=== PATIENT | female | born 1985 | race Caucasian/White ===

== ENCOUNTER 2018-04-13 17:26 | Emergency (ER) | payer OTHER ==
[~2018-04-13] VITALS: Ht 162.6 cm; Wt 56.7 kg
--- OUTSIDE RECORDS SUMMARY | 2018-04-13 17:29 | XMS REPORT | Continuity of Care Document ---
Author Author [facility] Address Unknown Phone Unavailable Problems Problem Status Onset Date Classification Date Reported Comments Source Tuberculosis screening 11/23/2017 Diagnosis 11/23/2017 [facility] Medications Medication Details Route Status Patient Instructions Ordering Provider Order Date Source Amoxicillin 875 MG Oral Tablet amoxicillin 875 mg tablet Active [facility] Fluticasone propionate 0.05 MG/ACTUAT Metered Dose Nasal [place] fluticasone 50 mcg/actuation nasal spray,suspension Active [facility] Purified Protein Derivative of Tuberculin 50 UNT/ML Injectable Solution [Tubersol] Tubersol 5 tub. unit/0.1 mL intradermal injection solution Inject 0.1 mL by intradermal route. Active [facility] Allergies, Adverse Reactions, Alerts Substance Category Reaction Severity Reaction type Status Date Reported Comments Source Immunizations Immunization Date Given Site Status Last Updated Comments Source Results Order Name Results Value Reference Range Date Interpretation Comments Source Vital Signs Vital Sign Value Date Comments Source Encounters Location Location Details Encounter Type Encounter Number Reason For Visit Attending Provider ADM Date DC Date Status Source [place] - [facility] - [id number] [facility], RECORDS COORDINATOR-C: [address] [place] [address], Ph. [id number] Clarisse Sr 11/23/2017 [facility] Procedures Procedure Code Date Perfomer Comments Source
--- OUTSIDE RECORDS SUMMARY | 2018-04-13 17:29 | XMS REPORT | Encounter Summary ---
Author Organization Unknown Address [address] [place] [id number] Phone [phone] Reason for Visit Screening - TB Instructions 1. Tuberculosis screening Tubersol 5 tub. unit/0.1 mL intradermal injection solution PPD (purified protein derivative), skin test - Patient was advised to follow-up with [facility] within 48-72 hours. Discussion Note Pt is in NAD; Verbalizes understanding of all instructions with no questions at this time. Patient educational handouts: No information available. Plan of Care Patient Instructions Return in 48-72 hrs for TB reading. If not, the skin test will be considered invalid and will have to be repeated. In case of emergency call 911 or go to nearest ER. Reminders Provider Appointments None recorded. Lab PPD (Purified Protein Derivative), Skin Test 11/23/2017 [facility] Referral None recorded. Procedures None recorded. Surgeries None recorded. Imaging None recorded. Medications Name Start Date amoxicillin 875 mg tablet fluticasone 50 mcg/actuation nasal spray,suspension Tubersol 5 tub. unit/0.1 mL intradermal injection solution Inject 0.1 mL by intradermal route. Medications Administered Name Date Tubersol 5 tub. unit/0.1 mL intradermal injection solution Inject 0.1 mL by intradermal route. [id number] Vitals None recorded. Lab Results None recorded. Allergies Code Code System Name Reaction Severity Status Onset NKDA Problems None recorded. Procedures None recorded. Vaccine List None recorded. Social History None recorded. Past Encounters 11/23/2017 Tuberculosis Screening Clarisse Sr, MARCELA-C: [address], [place] [address], Ph. History of Present Illness Screening Request - TB Reported By: Patient Screening Request: BCG No prior BCG vaccination. PPD No past history of postive TB skin test (PPD), No previous severe local reaction to TB skin test (PPD). OTHER No prior vaccines within last month Review of Systems Screening - TB Reported By: Patient Symptoms during past year > 2 weeks, NOT associated with specific illness?: unexplained or low grade fever No fever. night sweats No night sweats. unexplained weight loss > 5 lbs No unexplained weight loss. persistent cough No persistent cough. shortness of breath No shortness of breath. coughing up blood (hemoptysis) No coughing up blood (hemoptysis). unusual fatigue No unusual fatigue. loss of appetite No loss of appetite. swollen neck glands No swollen neck glands Physical Exam Screening Reported By: Patient General Appearance: General: well-developed, well-nourished, no acute distress
== END 2018-04-13 18:28 | disposition home or self-care (01) ==
LOC: ER 17:26
DX: S82.432A Displaced oblique fracture of shaft of left fibula, initial encounter for closed fracture (principal); W17.89XA Other fall from one level to another, initial encounter; Y93.55 Activity, bike riding; Y92.488 Other paved roadways as the place of occurrence of the external cause
CPT/HCPCS: 99284

== ENCOUNTER 2018-07-18 17:00 | Outpatient (RCR) | payer OTHER ==
[~2018-07-18 17:00] MED LIST: FENTANYL CITRATE/PF 100MCG/2 ML INJ ONE; HEPARIN SOD/SOD CHLORIDE 0 ML ONE; IOPAMIDOL 370 MG/ML 200 ML INFUS..BTL INJ ONE; LIDOCAINE HCL 2% LOCAL 20 ML VIAL ONE; MIDAZOLAM HCL 2 MG/2 ML VIAL ONE; SODIUM CHLORIDE 0.9% 1000ML 0 ML ONE
== END 2018-07-21 ==
LOC: PT 17:00
PROVIDERS: ATTEND Specialist
DX: S82.892A Other fracture of left lower leg, initial encounter for closed fracture (principal)
CPT/HCPCS: J2001; J2250; J7030; Q9967

== ENCOUNTER 2018-07-27 17:16 | Outpatient (RCR) | payer OTHER | END 2018-08-21 | LOC: PT 17:16 | PROVIDERS: ATTEND Specialist | DX: S82.892A Other fracture of left lower leg, initial encounter for closed fracture (principal); M25.572 Pain in left ankle and joints of left foot; M62.81 Muscle weakness (generalized); R26.2 Difficulty in walking, not elsewhere classified | CPT/HCPCS: 97139 ==